=== PATIENT | male | born 1990 | race African-American/Black ===

== ENCOUNTER 2016-12-17 09:35 | Emergency (ER) | payer OTHER ==
[~2016-12-17] VITALS: Ht 162.6 cm; Wt 66.0 kg
[2016-12-17] MEDS ORDERED: KEFLEX500 MG PO (10:51)
[2016-12-17 12:05] VITALS: BP 132/67
== END 2016-12-17 12:07 ==
LOC: EME 09:35 → EXP 09:35
DX: S01.81XA Laceration without foreign body of other part of head, initial encounter (principal); S00.93XA Contusion of unspecified part of head, initial encounter; W10.8XXA Fall (on) (from) other stairs and steps, initial encounter; Y92.148 Other place in prison as the place of occurrence of the external cause; Z23 Encounter for immunization
CPT/HCPCS: 99281; 99284

== ENCOUNTER 2016-12-17 16:35 | Emergency (ER) | payer OTHER ==
[~2016-12-17] VITALS: Ht 167.6 cm; Wt 70.0 kg
[~2016-12-17 16:35] MED LIST: KEFLEX500 MG PO
[2016-12-17 19:28] VITALS: BP 128/86
== END 2016-12-17 19:31 ==
LOC: EME 16:35
DX: S06.0X0A Concussion without loss of consciousness, initial encounter (principal); W19.XXXD Unspecified fall, subsequent encounter; F17.200 Nicotine dependence, unspecified, uncomplicated
CPT/HCPCS: 70450; 99281; 99283